=== PATIENT | female | born 1990 | race Caucasian/White ===

== ENCOUNTER → 2016-07-21 | Outpatient (CLI) | payer OTHER ==
[~2016-07-21] MED LIST: CEFD300C PO
[2016-07-22 09:17] VITALS: BP 150/89
--- NOTE | 2016-07-22 09:17 | Urgent Care T Sheet Gen (E) ---
Intake General Temperature (Fahrenheit): 99.5 Pulse: 98 Blood Pressure Systolic: 150 Blood Pressure Diastolic: 89 Respirations: 16 SPO2: 97 Chief Complaint: R hip pain and fever Source: Patient Exam Limitations: No limitations History of Present Illness Initial Comments Pt reports she has had pain in her R hip and some up her back on the R since yesterday afternoon. It feels as though her "back is out" but she cannot recall any episode of straining or injury that would have caused this. The chief pain seems to be in her R hip, and radiates upward, but it causes most pain when she is weightbearing and walking around. She then began running a fever this afternoon, up to 100 degrees, so she took ibuprofen a little while ago and has come in to be assessed. She is concerned that it could be kidney stones, but the only time she has had these was when she was and the pain was everywhere, so she can't say that it's the same. She wondered after she had some similar twinges about 5 days ago, but then forgot about it. She denies any numbness or tingling down her legs, urinary or bowel incontinence, or any hematuria or dysuria. Pt admits that she does have loose ligaments from her recent , and has in the past had multiple orthopedic injuries while due to loose ligaments. 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 Pt is currently . Onset & Duration: Days (yesterday) Timing: Still present Severity: Moderate Similar Sympotms Previously: No Allergies: Coded Allergies: No Known Drug Allergies (Unverified , 07/22/16) Home Meds Active Scripts Cefdinir 300 Mg [id number] Mg PO BID Infection #14 CAP Ref 0 Prov:FELICITA THOMPSON 07/21/16 Respiratory Constitutional Symptoms: See HPINo Chills, FeverNo Malaise EENTM: No symptoms reportedNo Ear pain, No Nose Congestion Respiratory: See HPINo Cough Cardiovascular: No symptoms reported Gastrointestinal/Abdominal: No symptoms reportedNo Abdominal pain, No Nausea Genitourinary: See HPINo Dysuria, No Hematuria Musculoskeletal: Back pain Joint pain (R hip) see HPI Skin: See HPINo Change in color, No Rash Neurological: See HPINo Numbness, No Tingling, No Weakness All Other Systems Reviewed Remaining Systems: All other systems reviewed with negative findings Past Nrxgtkn-Tfqqyn-Uixvxe Hx Surgeries/Hospitalizations Hospitalization/Surgery Hx: L ACL repair 2011, R shoulder 2007, R knee 2006 Respiratory Respiratory History: None Cardiovascular Cardiovascular History: None Neuro/Muscular Neuro/Muscular History: Other, see commnent (see surgeries) Reproductive System : 3 Living Children: 3 Genitouinary Genitourinary History: Kidney stones (2011) Gastrointestinal GI/Endocrine History: None Diabetes Diabetes: No HEENT HEENT History: None Cancer History of Cancer?: No Family History Family History: No reported family hx Physical Exam Physical Exam General Appearance: WD/WN No apparent distress Eyes, Ears, Nose, Throat Ex: PERRL/EOMI Neck Exam: Non tender Full range of motion Supple Respiratory Exam: Chest non-tender Lungs clear Normal breath sounds No respiratory distress Cardiovascular Exam: Regular rate, rhythm No murmur GI/ Exam: Non tender No organomegaly Normal bowel sounds No distention Back Exam: Normal Inspection No CVA tenderness No vertebral tenderness Skin Exam: Normal color Warm/dry/intact No rashes Extremity Exam: Full range of motion (but with moderate pain with straight leg lift, internal and external rotation, adduction and abduction, always described as being on the lateral side of the hip and up to the back) No pedal edema No calf tenderness Tenderness (along the lateral R hip, particularly over the area of the trochanteric bursa)No Swelling Neurologic/Psychiatric Exam: Oriented times 4 No motor deficits No sensory deficits Mood/affect nml Abnormal gait (limping on the R as pt prefers not to put weight on that side) Progress/Orders Lab Results Labs Results: UA UA Lab Results ph 5.5 Specific [place] 1.005 Protein neg Glucose (UA) neg Ketones neg Blood trace Nitrates pos Bilirubin small Urobilirubin 0.2 Leukocyte Esterase moderate Departure Urgent Care Impression Chief Complaint: R hip pain and fever Impression: Primary Impression: Acute cystitis Qualified Code: N30.01 - Acute cystitis with hematuria Additional Impression: Hip pain, right Departure Disposition: HOME OR SELF-CARE Condition: Stable Referrals: Van Tripp MD (PCP) Additional Instructions: Discussed with pt that although referred pain to a hip isn't common with urinary tract infections, she does seem to be starting an infection. This would explain the fever, if not her lack of other symptoms. Alternatively, she may have either strained a muscle in her R lower back, or irritated the trochanteric bursa on that side. Discussed etiology of bursitis and strain, as with pt's history she would seem prone to both with her home life and tendency toward loose ligaments. Reassured pt that her exam does not seem typical for severe and unusual conditions at this time. I recommend that we treat the cystitis, use ibuprofen for the hip/back pain, and if she continues to have fever and the pain is not improving by early next week, I want her to follow up with her PCP for further exam and testing as necessary. Pt would like to attempt drinking increased fluids and use of cranberry juice prior to using antibiotics but I will send these out for her in case she has no decrease in symptoms within 1-2 days. She should follow up if not improving as discussed, or if having increased fever , chills, hip pain, redness, swelling, hematuria, dysuria, or other concerning symptoms despite using the prescribed treatment. Pt states understanding and agrees to plan. All questions answered. Scripts Cefdinir 300 Mg [id number] Mg PO BID Infection #14 CAP Ref 0 Prov:FELICITA THOMPSON 07/21/16 End of report . FELICITA THOMPSON July 21, 2016 20:44
--- NOTE | 2016-07-26 12:51 | Urgent Care Follow Up Note (E) ---
Urgent Care Follow Up Note Urine culture showed "no growth" Scripts Cefdinir 300 Mg [id number] Mg PO BID Infection #14 CAP Ref 0 Prov:FELICITA THOMPSON 07/21/16 CELI SEGUNDO July 26, 2016 12:51
== END ==
LOC: MHUC 20:02
PROVIDERS: ATTEND Physician Assistant Medical
DX: N30.01 Acute cystitis with hematuria (principal); M25.551 Pain in right hip
CPT/HCPCS: 99203

== ENCOUNTER → 2016-07-25 | Outpatient (CLI) | payer OTHER ==
--- NOTE | 2016-07-25 15:43 | Diagnostic Imaging Report ---
INDICATION: Back pain. TECHNIQUE: The lumbar spine series was performed with AP and lateral views. FINDINGS: The lumbar vertebrae are normal in height and alignment. There is no fracture, subluxation, or compression deformity. There is no significant disc space narrowing. There is no spondylolysis or spondylolisthesis. Incidental note is made of numerous calcifications overlying the renal shadows on both sides. IMPRESSION: Unremarkable lumbar spine radiographs. Incidental note is made of multiple radiopaque calcifications overlying both kidneys. Dictated by: Dictated on workstation # [id number]
--- NOTE | 2016-07-25 16:14 | Diagnostic Imaging Report ---
INDICATION: Right hip pain. TECHNIQUE: AP and frog-leg views of the right hip were obtained. FINDINGS: No fracture or acute bony abnormality is seen. There is no lytic or blastic lesion. There is no significant joint space narrowing. IMPRESSION: Negative right hip. Dictated by: Dictated on workstation # [id number]
--- NOTE | 2016-07-25 16:16 | Diagnostic Imaging Report ---
INDICATION: Left hip pain. TECHNIQUE: AP and frog-leg views of the left hip were obtained. FINDINGS: No fracture or acute bony abnormality is seen. There is no lytic or blastic lesion and no significant joint space narrowing. IMPRESSION: Negative left hip. Dictated by: Dictated on workstation # [id number]
== END ==
LOC: RAD 13:47
PROVIDERS: ATTEND Chiropractor
DX: Z01.818 Encounter for other preprocedural examination (principal); M54.41 Lumbago with sciatica, right side; M25.552 Pain in left hip; M25.551 Pain in right hip
CPT/HCPCS: 72100; 73502; 81025